=== PATIENT | female | born 1965 | race Caucasian/White ===

== ENCOUNTER 2021-12-08 18:10 | Emergency (ER) | payer BC, SELFPAY ==
[2021-12-08 18:20] VITALS: BP 124/86; PULSE 95; RESP 18; TEMP 36.6; O2SAT 97; BMI 29.1
[2021-12-08] MEDS: 0.9 % SODIUM CHLORIDE 1000 ml 1,000 ML IV ×2 (19:09→20:47)
[2021-12-08] MEDS: ONDANSETRON 2 MG/ML inj 4 MG IVP (19:10)
[2021-12-08 19:14] LABS: Lactate* 1.2 mmol/L (0.5-1.9)
[2021-12-08 19:17] LABS: Basophils Percent Auto 0.1 % (0.0-3.0); Eosinophils Percent Auto 1.3 % (0.0-7.0); Hematocrit 44.7 % (33.0-51.0); Hemoglobin* 15.2 gm/dL (12.0-16.0); Immature Granulocytes Abs Auto 0.03 K/uL (0.00-0.30); Lymphocytes Percent Auto 16.7 % (20-44); Mean Corpuscular HGB Conc 34 gm/dL (32-36); Mean Corpuscular Hemoglobin 32 pg (26-34); Mean Corpuscular Volume 93 fL (80-100); Monocytes Percent Auto 7.6 % (0.0-11.0); Neutrophils Percent Auto 74.1 % (42.0-72.0); Platelet Count* 369 K/uL (140-440); RDW Coefficient of Variation % 12.5 % (11.5-15.5); White Blood Count* 14.97 K/uL (4.50-11.00)
[2021-12-08 19:27] LABS: Slide Review Reflex No
--- NOTE | 2021-12-08 19:32 | ED_ITS ---
HPI - General Adult General Chief complaint: Nausea/Vomiting Stated complaint: POSSIBLE FOOD POISONING,NEG COVID TEST Time Seen by Provider: 12/08/21 18:18 History of Present Illness HPI narrative: Pt is a 56 year old woman with a history of RA who presents wtih 2 1/2 days of nausea and vomiting with limited nonbloody diarrhea. Prior to becoming ill, she had been eating [employer] at [employer]. No fever or chills. No chest pain, shortness of breath or abd pain. No rash. No blood in vomitus. No other sick contacts. Pt is on DMARD and Prednisone for RA Related Data Home Medications Medication Instructions Recorded Confirmed certolizumab pegol 400 mg/2 mL mg subcut 12/08/21 (200 mg/mL x2) subcutaneous syringe kit (Cimzia) prednisone 1 mg tablet mg 12/08/21 Allergies Allergy/AdvReac Type Severity Reaction Status Date / Time acetaminophen [From Vicodin] Allergy Verified 12/08/21 18:22 hydrocodone [From Vicodin] Allergy Verified 12/08/21 18:22 Review of Systems Status of ROS: Reports: 10 or more systems reviewed and unremarkable except as noted in History and below [facility] Medical History (Updated 12/08/21 @ 21:25 by Duy Sanchez MD) Rheumatoid arthritis Surgical History (Updated 12/08/21 @ 19:35 by Duy Sanchez MD) H/O hernia repair Social History Smoking Status: Never smoker Do you use any of these nicotine containing products: None Second hand tobacco smoke exposure: No How often do you have a drink containing alcohol: 2-3 times a week How many standard drinks containing alcohol do you have on a typical day: 1 or 2 How often do you have six or more drinks on one occasion: Never AUDIT-C Alcohol total score: 3 Non-prescribed substance use: denies use Exam Narrative: Exam Narrative: EXAM GENERAL: Patient appears comfortable and well. EYES: No scleral icterus. ENT: Tympanic membranes and oropharynx normal. THYROID: no thyroid nodules or thyromegaly. LYMPH: No supraclavicular or cervical lymphadenopathy. SKIN: Visible skin seen during exam normal or with benign process only. EXT: No dependent lower extremity pedal edema. HEART: Regular rate and rhythm with no murmurs, rubs, or gallops. LUNGS: Clear to auscultation bilaterally with no crackles or wheezes. ABD: Soft, non tender, non distended. PSYCH: Good eye contact, speech is not pressured. Const: Vital Signs, click to edit/add: Vital Signs - 24 hr 12/08/21 18:20 12/08/21 19:50 Temperature 97.9 F 97.2 F L Pulse Rate [Right Pulse Oximeter] 95 71 Respiratory Rate 18 18 Blood Pressure [Ri ght Upper Arm] 124/86 108/80 Pulse Oximetry 97 Oxygen Delivery Me thod Room Air Course Course Hospital Course: Pt had IV placed and started on Normal saline with IV Zofran. CBC, Lactate, Amylase, CMP ordered. Reevaluation(s) Reevaluation #1: Pt's labs reviewed with pt. Pt given 2 liters normal saline with 20 Meq Kcl orally. Pt feeling better and would like to go home. Time: 21:22 Vital Signs Vital signs: Initial Vital Signs Temperature 97.9 F 12/08/21 18:20 Temperature Source Temporal Artery Scan 12/08/21 18:20 Pulse Rate 95 12/08/21 18:20 Respiratory Rate 18 12/08/21 18:20 Blood Pressure 124/86 12/08/21 18:20 Blood Pressure Mean 98 12/08/21 18:20 Blood Pressure Position Sitting 12/08/21 18:20 Pulse Oximetry 97 12/08/21 18:20 Oxygen Delivery Method 12/08/21 18:20 Vital Signs Temperature 97.9 F 12/08/21 18:20 Pulse Rate 95 12/08/21 18:20 Respiratory Rate 18 12/08/21 18:20 Blood Pressure 124/86 12/08/21 18:20 Pulse Oximetry 97 12/08/21 18:20 Oxygen Delivery Method 12/08/21 18:20 Temperature 97.2 F L 12/08/21 19:50 Pulse Rate 71 12/08/21 19:50 Respiratory Rate 18 12/08/21 19:50 Blood Pressure 108/80 12/08/21 19:50 Pulse Oximetry 97 12/08/21 18:20 Oxygen Delivery Method 12/08/21 18:20 Medical Decision Making MDM Narrative Medical decision making narrative: Pt presents with nausea vomiting and diarrhea. Appeared dehydrated. Labs reassuring. Pt feeling better after NS 2 Liter and 20 of Kcl orally. Would like to go home. Differential Diagnosis Differential Diagnosis: Gastroenteritis. Cholecystitis, Appendicitis, Colitis. Lab Data Labs: Lab Results 12/08/21 12/08/21 12/08/21 Range/Units 18:58 18:58 18:58 WBC 14.97 H (4.50-11.00) K/uL RBC 4.80 (4.00-5.20) m/uL Hgb 15.2 (12.0-16.0) gm/dL Hct 44.7 (33.0-51.0) % MCV 93 (80-100) fL MCH 32 (26-34) pg MCHC 34 (32-36) gm/dL RDW Coeff of Neida 12.5 (11.5-15.5) % Plt Count 369 (140-440) K/uL Neut % (Auto) 74.1 H (42.0-72.0) % Lymph % (Auto) 16.7 L (20-44) % [place] % (Auto) 7.6 (0.0-11.0) % Eos % (Auto) 1.3 (0.0-7.0) % Baso % (Auto) 0.1 (0.0-3.0) % Neut # (Auto) 11.10 H (1.7-7.0) K/uL Lymph # (Auto) 2.50 (0.90-2.90) K/uL [place] # (Auto) 1.10 H (0.00-0.90) K/UL Eos # (Auto) 0.20 (0.00-0.50) K/uL Baso # (Auto) 0.00 (0.00-0.30) K/uL Abs Immat Gran (auto) 0.03 (0.00-0.30) K/uL Sodium 136 (135-149) mmol/L Potassium 3.4 L (3.6-5.1) mmol/L Chloride 101 (96-114) mmol/L Carbon Dioxide 23 (20-32) mmol/L BUN 21 (7-30) mg/dL Creatinine 0.7 (0.5-1.5) mg/dL Estimated Creat Clear 83.01 Estimated GFR 101 ml/min Glucose 118 H (60-115) mg/dL Lactate 1.2 (0.5-1.9) mmol/L Calcium 9.4 (8.4-10.6) mg/dL Total Bilirubin 0.5 (0.1-1.5) mg/dL AST 24 (12-35) U/L ALT 19 (4-35) U/L Alkaline Phosphatase 108 (40-150) U/L Total Protein 7.9 (6.0-8.3) g/dL Albumin 4.3 (3.3-5.0) g/dL Amylase 74 (18-89) U/L 12/08/21 Range/Units 20:40 WBC (4.50-11.00) K/uL RBC (4.00-5.20) m/uL Hgb (12.0-16.0) gm/dL Hct (33.0-51.0) % MCV (80-100) fL MCH (26-34) pg MCHC (32-36) gm/dL RDW Coeff of Neida (11.5-15.5) % Plt Count (140-440) K/uL Neut % (Auto) (42.0-72.0) % Lymph % (Auto) (20-44) % [place] % (Auto) (0.0-11.0) % Eos % (Auto) (0.0-7.0) % Baso % (Auto) (0.0-3.0) % Neut # (Auto) (1.7-7.0) K/uL Lymph # (Auto) (0.90-2.90) K/uL [place] # (Auto) (0.00-0.90) K/UL Eos # (Auto) (0.00-0.50) K/uL Baso # (Auto) (0.00-0.30) K/uL Abs Immat Gran (auto) (0.00-0.30) K/uL Sodium (135-149) mmol/L Potassium (3.6-5.1) mmol/L Chloride (96-114) mmol/L Carbon Dioxide (20-32) mmol/L BUN (7-30) mg/dL Creatinine (0.5-1.5) mg/dL Estimated Creat Clear Estimated GFR ml/min Glucose (60-115) mg/dL Lactate 1.1 (0.5-1.9) mmol/L Calcium (8.4-10.6) mg/dL Total Bilirubin (0.1-1.5) mg/dL AST (12-35) U/L ALT (4-35) U/L Alkaline Phosphatase (40-150) U/L Total Protein (6.0-8.3) g/dL Albumin (3.3-5.0) g/dL Amylase (18-89) U/L Discharge Plan Discharge Clinical Impression: Gastroenteritis Condition: Stable Instructions: Gastroenteritis (ED) Additional Instructions: Advance diet as tolerated Zofran as needed for nausea Follow up with PCP if symptoms persist Activity Level: Activity as Tolerated Discharge Diet: Regular Prescriptions: No Action prednisone 1 mg tablet Label Comments: TAKE 4 TABLETS (4MG) BY MOUTH IN THE MORNING AND 3 TABLETS (3MG) IN THE EVENING Cimzia 400 mg/2 mL (200 mg/mL x 2) syringe kit SUBCUT Follow Up/Referrals: Katiana Lawler MD [Primary Care Provider] - Stand Alone Forms: MyHealth Info Instructions
[2021-12-08 19:37] LABS: Albumin* 4.3 g/dL (3.3-5.0); Chloride* 101 mmol/L (96-114); Sodium* 136 mmol/L (135-149)
[2021-12-08 19:38] LABS: Potassium* 3.4 mmol/L (3.6-5.1)
[2021-12-08 19:40] LABS: Alanine Aminotransferase* 19 U/L (4-35); Alkaline Phosphatase* 108 U/L (40-150); Amylase* 74 U/L (18-89); Aspartate Amino Transferase* 24 U/L (12-35); Bilirubin Total* 0.5 mg/dL (0.1-1.5); Blood Urea Nitrogen* 21 mg/dL (7-30); Calcium* 9.4 mg/dL (8.4-10.6); Carbon Dioxide* 23 mmol/L (20-32); Creatinine* 0.7 mg/dL (0.5-1.5); Est. Creatinine Clearance* 83.01; Estimated Glomerular Filt Rate 101 ml/min; Glucose* 118 mg/dL (60-115); Total Protein* 7.9 g/dL (6.0-8.3)
[2021-12-08 19:50] VITALS: BP 108/80; PULSE 71; RESP 18; TEMP 36.2
[2021-12-08 20:28] LABS: Lactate* 1.1 mmol/L (0.5-1.9)
[2021-12-08] MEDS: POTASSIUM CHLORIDE 10 MEQ CAPSULE ER 20 MEQ PO (20:51)
== END 2021-12-08 22:14 | disposition home or self-care (01) ==
PROVIDERS: Emergency Provider Internal Medicine; PCP Family Medicine
DX: K52.9 Noninfective gastroenteritis and colitis, unspecified (principal)
CPT/HCPCS: 36415; 80053; 82150; 83605; 85025; 96361; 96374; 99283; 99284; A9270; J2405; J7030

== ENCOUNTER 2023-03-01 09:48 | Emergency (ER) | payer BC, SELFPAY ==
[2023-03-01] VITALS (46 sets, daily range): BP systolic 86–129; BP diastolic 55–83; PULSE 66–81; RESP 16–20; TEMP 36.5–36.6; O2SAT 89–99; BMI 29.1
[2023-03-01 11:12] LABS: Lactate* 0.8 mmol/L (0.5-1.9)
[2023-03-01 11:16] LABS: Basophils Percent Auto 0.2 % (0.0-3.0); Eosinophils Percent Auto 0.8 % (0.0-7.0); Hematocrit 41.2 % (33.0-51.0); Hemoglobin* 12.8 gm/dL (12.0-16.0); Immature Granulocytes Pct Auto 0.1 %; Lymphocytes Percent Auto 11.3 % (20-44); Mean Corpuscular HGB Conc 31 gm/dL (32-36); Mean Corpuscular Hemoglobin 30 pg (26-34); Mean Corpuscular Volume 96 fL (80-100); Monocytes Percent Auto 6.8 % (0.0-11.0); Neutrophils Percent Auto 80.8 % (42.0-72.0); Platelet Count* 213 K/uL (140-440); RDW Coefficient of Variation % 14.3 % (11.5-15.5); Red Blood Count 4.28 m/uL (4.00-5.20); White Blood Count* 11.25 K/uL (4.50-11.00)
[2023-03-01] MEDS: 0.9 % SODIUM CHLORIDE 1000 ml 1,000 ML IV (11:20)
--- NOTE | 2023-03-01 11:24 | ED_ITS ---
HPI - Abdominal Pain General Time Seen by Provider: 11:15 <Lois Luevano - Last Filed: 03/01/23 16:23> Date Seen: 03/01/23 <Lois Luevano - Last Filed: 03/01/23 16:23> Chief Complaint: Abdominal Pain <Lois Luevano - Last Filed: 03/01/23 16:23> Stated Complaint: Gallbladder issues <Lois Luevano - Last Filed: 03/01/23 16:23> Time Seen by Provider: 03/01/23 11:01 <Lois Luevano - Last Filed: 03/01/23 16:23> Source: patient <Lois Luevano - Last Filed: 03/01/23 16:23> Mode of arrival: ambulatory <Lois Luevano - Last Filed: 03/01/23 16:23> Limitations: no limitations <Lois Luevano - Last Filed: 03/01/23 16:23> History of Present Illness HPI narrative: Patient presents with RUQ abdominal pain beginning 5 days ago, which has since progressively worsened within the past 24-48 hours with associated nausea and fatigue. She describes her pain as waxing and waning and notes it is normally worse at night. Today she rates her pain as a 5/10, but states the pain starts in the epigastric region and radiates around to her right upper back when the pain is at its worst. She has mild relief laying on her side. Eating large meals seems to worsen the pain, so patient has had a decreased appetite due to this. She last ate this morning at 0830 and had a 1/2 piece of toast. Patient was seen and evaluated at 0430 yesterday morning at the ED in [facility] and diagnosed with gall stones. She was sent home with Augmentin, but has not been taking anything else for the pain. Patient was in [place] for her niece's concert and the providers discharged her home in hopes of completing surgery closer to home. History of a tummy tuck, but denies any other abdominal surgeries. Patient's last bowel movement was yesterday. She denies any fevers, chills, vomiting, bowel changes, urinary changes, or any other complaints at this time. <Lois Luevano - Last Filed: 03/01/23 16:23> Patient presents with RUQ abdominal pain beginning 5 days ago, which has since progressively worsened within the past 24-48 hours with associated nausea and fatigue. She describes her pain as waxing and waning and notes it is normally worse at night. Today she rates her pain as a 5/10, but states the pain starts in the epigastric region and radiates around to her right upper back when the pain is at its worst. She has mild relief laying on her side. Eating large meals seems to worsen the pain, so patient has had a decreased appetite due to this. She last ate this morning at 0830 and had a 1/2 piece of toast. Patient was seen and evaluated at 0430 yesterday morning at the ED in [facility] and diagnosed with cholecystitis. She was sent home with Augmentin, but has not been taking anything else for the pain. Patient was in [place] for her niece's concert and the providers discharged her home in hopes of completing surgery closer to home. History of a tummy tuck, but denies any other abdominal surgeries. Patient's last bowel movement was yesterday. She denies any fevers, chills, vomiting, bowel changes, urinary changes, or any other complaints at thi s time. <Mary Schumacher MD - Last Filed: 03/01/23 22:08> Related Data Home Medications: Home Medications Medication Instructions Recorded Confirmed prednisone 1 mg tablet mg 12/08/21 02/15/23 hydroxychloroquine 200 mg tablet 200 mg PO DAILY 02/15/23 03/01/23 infliximab 100 mg intravenous IV 02/15/23 02/15/23 solution (Remicade) neomycin 3.5 mg/g-polymyxin B ophthalmic (eye) 02/15/23 02/15/23 10,000 unit/g-dexameth 0.1 % eye oint Previous Rx's Medication Instructions Recorded gabapentin 300 mg capsule 300 mg PO QHS #14 caps 02/17/23 <Lois Luevano - Last Filed: 03/01/23 16:23> Allergies/Adverse Reactions: Allergies Allergy/AdvReac Type Severity Reaction Status Date / Time acetaminophen [From Vicodin] Allergy Verified 03/01/23 10:04 hydrocodone [From Vicodin] Allergy Verified 03/01/23 10:04 <Lois Luevano - Last Filed: 03/01/23 16:23> Review of Systems Const Reports: fatigue; Denies: fever, chills or night sweats <[facility] - Last Filed: 03/01/23 16:23> Eyes Denies: change in vision or blurry vision <[facility] - Last Filed: 03/01/23 16:23> ENMT Denies: throat pain, neck pain, throat swelling or difficulty swallowing <[facility] - Last Filed: 03/01/23 16:23> Cardio Denies: chest pain, palpitations, edema, lightheadedness or shortness of breath with exertion <Lois [facility] - Last Filed: 03/01/23 16:23> Resp Denies: shortness of breath <Lois [facility] - Last Filed: 03/01/23 16:23> GI Reports: abdominal pain (RUQ) and nausea; Denies: vomiting, heartburn, diarrhea, constipation, bloating, difficulty swallowing, change in bowel habits or painful bowel movements <[facility] Last Filed: 03/01/23 16:23> Denies: painful urination, urinary frequency, urinary incontinence or blood in urine <[facility] Last Filed: 03/01/23 16:23> Musculo Reports: back pain; Denies: neck pain <[facility] Last Filed: 03/01/23 16:23> Integ/Breast Denies: rash or itching <[facility] - Last Filed: 03/01/23 16:23> Neuro Denies: headache <[facility] - Last Filed: 03/01/23 16:23> Psych Denies: anxiety <[facility] Last Filed: 03/01/23 16:23> Endo Reports: fatigue <[facility] Last Filed: 03/01/23 16:23> Allergy/Immuno Denies: throat swelling <[facility] Last Filed: 03/01/23 16:23> PFSH PFSH Medical History: Medical History Rheumatoid arthritis ?M06.9 - Rheumatoid arthritis, unspecified (ICD-10) <[facility] - Last Filed: 03/01/23 16:23> Surgical History: Surgical History H/O hernia repair ?Z98.890 - Other specified postprocedural states (ICD-10) ?Z87.19 - Personal history of other diseases of the digestive system (ICD-10) <Lois Luevano - Last Filed: 03/01/23 16:23> Social History: Social History Smoking Status: Never smoker Do you use any of these nicotine containing products: None Second hand tobacco smoke exposure: No How often do you have a drink containing alcohol: 2-3 times a week How many standard drinks containing alcohol do you have on a typical day: 1 or 2 How often do you have six or more drinks on one occasion: Never AUDIT-C Alcohol total score: 3 Non-prescribed substance use: denies use <Lois Luevano - Last Filed: 03/01/23 16:23> Exam Const: Vital Signs, click to edit/add: Vital Signs - 24 hr 03/01/23 09:57 03/01/23 11:47 03/01/23 11:48 Temperature 97.7 F Pulse Rate 76 Pulse Rate [Left P ulse Oximeter] 81 78 Respiratory Rate 16 18 Blood Pressure 121/79 Blood Pressure [Ri ght Upper Arm] 129/83 121/79 Pulse Oximetry 99 93 91 Oxygen Delivery Me thod Room Air Room Air Oxygen Flow Rate 03/01/23 11:48 03/01/23 12:00 03/01/23 12:17 Temperature Pulse Rate 77 73 75 Pulse Rate [Left P ulse Oximeter] Respiratory Rate Blood Pressure Blood Pressure [Ri ght Upper Arm] Pulse Oximetry 92 92 91 Oxygen Delivery Me thod Oxygen Flow Rate 03/01/23 12:30 03/01/23 12:45 03/01/23 13:37 Temperature Pulse Rate 70 72 Pulse Rate [Left P ulse Oximeter] 79 Respiratory Rate 20 Blood Pressure Blood Pressure [Ri ght Upper Arm] 109/75 Pulse Oximetry 91 92 92 Oxygen Delivery Me thod Room Air Oxygen Flow Rate 03/01/23 15:45 03/01/23 16:00 03/01/23 16:01 Temperature Pulse Rate 80 75 73 Pulse Rate [Left P ulse Oximeter] Respiratory Rate Blood Pressure 104/68 Blood Pressure [Ri ght Upper Arm] Pulse Oximetry 91 93 94 Oxygen Delivery Me thod Oxygen Flow Rate 03/01/23 16:15 03/01/23 16:30 03/01/23 16:31 Temperature Pulse Rate 81 79 76 Pulse Rate [Left P ulse Oximeter] Respiratory Rate Blood Pressure 98/70 Blood Pressure [Ri ght Upper Arm] Pulse Oximetry 94 95 92 Oxygen Delivery Me thod Oxygen Flow Rate 03/01/23 16:45 03/01/23 17:00 03/01/23 17:02 Temperature Pulse Rate 77 78 75 Pulse Rate [Left P ulse Oximeter] Respiratory Rate Blood Pressure 93/69 Blood Pressure [Ri ght Upper Arm] Pulse Oximetry 92 92 95 Oxygen Delivery Me thod Oxygen Flow Rate 03/01/23 17:03 03/01/23 17:15 03/01/23 17:30 Temperature Pulse Rate 74 71 75 Pulse Rate [Left P ulse Oximeter] Respiratory Rate Blood Pressure Blood Pressure [Ri ght Upper Arm] Pulse Oximetry 94 96 93 Oxygen Delivery Me thod Oxygen Flow Rate 03/01/23 17:31 03/01/23 17:45 03/01/23 18:00 Temperature Pulse Rate 73 73 72 Pulse Rate [Left P ulse Oximeter] Respiratory Rate Blood Pressure 111/66 Blood Pressure [Ri ght Upper Arm] Pulse Oximetry 94 96 93 Oxygen Delivery Me thod Oxygen Flow Rate 03/01/23 18:01 03/01/23 18:02 03/01/23 18:15 Temperature Pulse Rate 72 71 73 Pulse Rate [Left P ulse Oximeter] Respiratory Rate Blood Pressure 105/68 Blood Pressure [Ri ght Upper Arm] Pulse Oximetry 94 95 94 Oxygen Delivery Me thod Oxygen Flow Rate 03/01/23 18:30 03/01/23 18:31 03/01/23 18:45 Temperature Pulse Rate 73 74 78 Pulse Rate [Left P ulse Oximeter] Respiratory Rate Blood Pressure 86/70 L Blood Pressure [Ri ght Upper Arm] Pulse Oximetry 94 96 93 Oxygen Delivery Me thod Oxygen Flow Rate 03/01/23 19:00 03/01/23 19:01 03/01/23 19:15 Temperature Pulse Rate 78 73 73 Pulse Rate [Left P ulse Oximeter] Respiratory Rate Blood Pressure 98/69 Blood Pressure [Ri ght Upper Arm] Pulse Oximetry 94 93 91 Oxygen Delivery Me thod Oxygen Flow Rate 03/01/23 19:30 03/01/23 19:31 03/01/23 20:00 Temperature Pulse Rate 72 70 69 Pulse Rate [Left P ulse Oximeter] Respiratory Rate Blood Pressure 100/68 Blood Pressure [Ri ght Upper Arm] Pulse Oximetry 91 91 89 Oxygen Delivery Me thod Room Air Nasal Cannula Oxygen Flow Rate 1 03/01/23 20:01 03/01/23 20:30 03/01/23 20:30 Temperature Pulse Rate 70 71 Pulse Rate [Left P ulse Oximeter] Respiratory Rate Blood Pressure 104/74 Blood Pressure [Ri ght Upper Arm] Pulse Oximetry 93 95 89 Oxygen Delivery Me thod Nasal Cannula Nasal Cannula Room Air Oxygen Flow Rate 1 1 03/01/23 20:31 03/01/23 21:00 03/01/23 21:02 Temperature Pulse Rate 69 68 66 Pulse Rate [Left P ulse Oximeter] Respiratory Rate Blood Pressure 91/68 94/63 Blood Pressure [Ri ght Upper Arm] Pulse Oximetry 96 94 95 Oxygen Delivery Me thod Nasal Cannula Nasal Cannula Nasal Cannula Oxygen Flow Rate 1 1 1 03/01/23 21:30 03/01/23 21:31 03/01/23 21:32 Temperature Pulse Rate 69 68 68 Pulse Rate [Left P ulse Oximeter] Respiratory Rate Blood Pressure 105/69 Blood Pressure [Ri ght Upper Arm] Pulse Oximetry 95 95 95 Oxygen Delivery Me thod Nasal Cannula Nasal Cannula Nasal Cannula Oxygen Flow Rate 1 1 0.5 03/01/23 21:45 Temperature 97.8 F Pulse Rate 72 Pulse Rate [Left P ulse Oximeter] Respiratory Rate Blood Pressure Blood Pressure [Ri ght Upper Arm] Pulse Oximetry 96 Oxygen Delivery Me thod Nasal Cannula Oxygen Flow Rate 0.5 <Lois Luevano - Wiliam Filed: 03/01/23 16:23> Vital Signs, click to edit/add: Vital Signs - 24 hr 03/01/23 09:57 03/01/23 11:47 03/01/23 11:48 Temperature 97.7 F Pulse Rate 76 Pulse Rate [Left P ulse Oximeter] 81 78 Respiratory Rate 16 18 Blood Pressure 121/79 Blood Pressure [Ri ght Upper Arm] 129/83 121/79 Pulse Oximetry 99 93 91 Oxygen Delivery Me thod Room Air Room Air Oxygen Flow Rate 03/01/23 11:48 03/01/23 12:00 12/04/23 12:17 Temperature Pulse Rate 77 73 75 Pulse Rate [Left P ulse Oximeter] Respiratory Rate Blood Pressure Blood Pressure [Ri ght Upper Arm] Pulse Oximetry 92 92 91 Oxygen Delivery Me thod Oxygen Flow Rate 03/01/23 12:30 03/01/23 12:45 03/01/23 13:37 Temperature Pulse Rate 70 72 Pulse Rate [Left P ulse Oximeter] 79 Respiratory Rate 20 Blood Pressure Blood Pressure [Ri ght Upper Arm] 109/75 Pulse Oximetry 91 92 92 Oxygen Delivery Me thod Room Air Oxygen Flow Rate 03/01/23 15:45 03/01/23 16:00 03/01/23 16:01 Temperature Pulse Rate 80 75 73 Pulse Rate [Left P ulse Oximeter] Respiratory Rate Blood Pressure 104/68 Blood Pressure [Ri ght Upper Arm] Pulse Oximetry 91 93 94 Oxygen Delivery Me thod Oxygen Flow Rate 03/01/23 16:15 03/01/23 16:30 03/01/23 16:31 Temperature Pulse Rate 81 79 76 Pulse Rate [Left P ulse Oximeter] Respiratory Rate Blood Pressure 98/70 Blood Pressure [Ri ght Upper Arm] Pulse Oximetry 94 95 92 Oxygen Delivery Me thod Oxygen Flow Rate 03/01/23 16:45 03/01/23 17:00 03/01/23 17:02 Temperature Pulse Rate 77 78 75 Pulse Rate [Left P ulse Oximeter] Respiratory Rate Blood Pressure 93/69 Blood Pressure [Ri ght Upper Arm] Pulse Oximetry 92 92 95 Oxygen Delivery Me thod Oxygen Flow Rate 03/01/23 17:03 03/01/23 17:15 03/01/23 17:30 Temperature Pulse Rate 74 71 75 Pulse Rate [Left P ulse Oximeter] Respiratory Rate Blood Pressure Blood Pressure [Ri ght Upper Arm] Pulse Oximetry 94 96 93 Oxygen Delivery Me thod Oxygen Flow Rate 03/01/23 17:31 03/01/23 17:45 03/01/23 18:00 Temperature Pulse Rate 73 73 72 Pulse Rate [Left P ulse Oximeter] Respiratory Rate Blood Pressure 111/66 Blood Pressure [Ri ght Upper Arm] Pulse Oximetry 94 96 93 Oxygen Delivery Me thod Oxygen Flow Rate 03/01/23 18:01 03/01/23 18:02 03/01/23 18:15 Temperature Pulse Rate 72 71 73 Pulse Rate [Left P ulse Oximeter] Respiratory Rate Blood Pressure 105/68 Blood Pressure [Ri ght Upper Arm] Pulse Oximetry 94 95 94 Oxygen Delivery Me thod Oxygen Flow Rate 03/01/23 18:30 03/01/23 18:31 03/01/23 18:45 Temperature Pulse Rate 73 74 78 Pulse Rate [Left P ulse Oximeter] Respiratory Rate Blood Pressure 86/70 L Blood Pressure [Ri ght Upper Arm] Pulse Oximetry 94 96 93 Oxygen Delivery Me thod Oxygen Flow Rate 03/01/23 19:00 03/01/23 19:01 03/01/23 19:15 Temperature Pulse Rate 78 73 73 Pulse Rate [Left P ulse Oximeter] Respiratory Rate Blood Pressure 98/69 Blood Pressure [Ri ght Upper Arm] Pulse Oximetry 94 93 91 Oxygen Delivery Me thod Oxygen Flow Rate 03/01/23 19:30 03/01/23 19:31 03/01/23 20:00 Temperature Pulse Rate 72 70 69 Pulse Rate [Left P ulse Oximeter] Respiratory Rate Blood Pressure 100/68 Blood Pressure [Ri ght Upper Arm] Pulse Oximetry 91 91 89 Oxygen Delivery Me thod Room Air Nasal Cannula Oxygen Flow Rate 1 03/01/23 20:01 03/01/23 20:30 03/01/23 20:30 Temperature Pulse Rate 70 71 Pulse Rate [Left P ulse Oximeter] Respiratory Rate Blood Pressure 104/74 Blood Pressure [Ri ght Upper Arm] Pulse Oximetry 93 95 89 Oxygen Delivery Me thod Nasal Cannula Nasal Cannula Room Air Oxygen Flow Rate 1 1 03/01/23 20:31 03/01/23 21:00 03/01/23 21:02 Temperature Pulse Rate 69 68 66 Pulse Rate [Left P ulse Oximeter] Respiratory Rate Blood Pressure 91/68 94/63 Blood Pressure [Ri ght Upper Arm] Pulse Oximetry 96 94 95 Oxygen Delivery Me thod Nasal Cannula Nasal Cannula Nasal Cannula Oxygen Flow Rate 1 1 1 03/01/23 21:30 03/01/23 21:31 03/01/23 21:32 Temperature Pulse Rate 69 68 68 Pulse Rate [Left P ulse Oximeter] Respiratory Rate Blood Pressure 105/69 Blood Pressure [Ri ght Upper Arm] Pulse Oximetry 95 95 95 Oxygen Delivery Me thod Nasal Cannula Nasal Cannula Nasal Cannula Oxygen Flow Rate 1 1 0.5 03/01/23 21:45 Temperature 97.8 F Pulse Rate 72 Pulse Rate [Left P ulse Oximeter] Respiratory Rate Blood Pressure Blood Pressure [Ri ght Upper Arm] Pulse Oximetry 96 Oxygen Delivery Me thod Nasal Cannula Oxygen Flow Rate 0.5 <Mary Schumacher MD - Last Filed: 03/01/23 22:08> Documenting provider has reviewed patient's vital signs: yes <[facility] Filed: 03/01/23 16:23> Common normals: no apparent distress, average body habitus, oriented x3, no limitations, healthy appearing, alert and well nourished <[facility] Last Filed: 03/01/23 16:23> HENMT: Common normals: normocephalic, head/scalp atraumatic, hearing grossly normal bilaterally, external ears normal, external nose normal, nasal mucous membranes and turbinates normal, moist oral mucous membranes and oropharynx normal <[facility] Filed: 03/01/23 16:23> Head and scalp: normocephalic and atraumatic <[facility] Filed: 03/01/23 16:23> Nose: external nose normal and nasal mucous membranes and turbinates normal <[facility] Filed: 03/01/23 16:23> External ear: external ears normal <[facility] Filed: 03/01/23 16:23> Eye: Common normals: PERRL, EOMs intact bilaterally, conjunctivae normal and no scleral icterus <[facility] Filed: 03/01/23 16:23> Conjunctiva: conjunctiva(e) normal <[facility] Filed: 03/01/23 16:23> Pupil: PERRL <[facility] Filed: 03/01/23 16:23> Neck & C-Spine: Common normals: full ROM, no lymphadenopathy, supple, no JVD and no carotid bruits <[facility] Filed: 03/01/23 16:23> Chest: Common normals: inspection of chest normal and palpation of chest normal <[facility] Last Filed: 03/01/23 16:23> Resp: Common normals: normal respiratory effort, no retractions, no use of accessory muscles, clear to auscultation bilaterally and percussion normal <[facility] Last Filed: 03/01/23 16:23> Auscultation: clear to auscultation bilaterally <[facility] Last Filed: 03/01/23 16:23> Percussion: percussion normal <[facility] Last Filed: 03/01/23 16:23> Cardio: Common normals: no JVD, regular rate, regular rhythm, S1 normal heart sound, S2 normal heart sound, no gallops, no clicks, no murmurs, no rub and peripheral pulses 2+ throughout <[facility] Last Filed: 03/01/23 16:23> Rate: regular rate <[facility] Last Filed: 03/01/23 16:23> Rhythm: regular rhythm <[facility] Filed: 03/01/23 16:23> Heart sounds: S1 normal and S2 normal <[facility] Filed: 03/01/23 16:23> Peripheral pulses: pulses 2+ throughout <[facility] Filed: 03/01/23 16:23> GI: Common normals: soft to palpation and no hepatosplenomegaly <[facility] Last Filed: 03/01/23 16:23> Inspection: normal to inspection; no abdominal distension <[facility] Last Filed: 03/01/23 16:23> Auscultation: normoactive bowel sounds <[facility] Last Filed: 03/01/23 16:23> Palpation: soft, tender Details: epigastric, RUQ and Coelho's sign and no hepatosplenomegaly; no guarding and not rigid <[facility] Last Filed: 03/01/23 16:23> Percussion: normal to percussion <[facility] Last Filed: 03/01/23 16:23> : Common normals: no CVA tenderness <[facility] Last Filed: 03/01/23 16:23> Bladder/kidney exam: no CVA tenderness <[facility] Last Filed: 03/01/23 16:23> Back & Pelvis: Common normals: no CVA tenderness <Lois Luevano - Last Filed: 03/01/23 16:23> Extremity: Common normals: normal to inspection, full ROM, normal capillary refill and no pedal edema <Lois [facility] - Last Filed: 03/01/23 16:23> Neuro: Common normals: oriented x3 <Lois Luevano - Last Filed: 03/01/23 16:23> Sensorium/orientation: alert <Lois Luevano - Last Filed: 03/01/23 16:23> Psych: Common normals: mental status grossly normal, thought process normal, cooperative, affect normal and speech normal <Lois Luevano - Last Filed: 03/01/23 16:23> Speech: normal speech <Lois Luevano - Last Filed: 03/01/23 16:23> Thought process: normal thought process <Lois [facility] - Last Filed: 03/01/23 16:23> Skin: Common normals: no rashes or lesions noted <Lois [facility] - Last Filed: 03/01/23 16:23> General skin exam: no rashes or lesions noted <Lois [facility]ano - Last Filed: 03/01/23 16:23> Course Course ED Course: I have personally evaluated patient and reviewed note, ordered and reviewed labs and imaging. Agree with assessment and plan. Manuel Schumacher MD <Mary Schumacher MD - Last Filed: 03/01/23 22:08> Reevaluation(s) Time of Reevaluation #1: 11:20 <Loisprasanth Luevano - Last Filed: 03/01/23 16:23> Reevaluation #1: Patient seen and evaluated by URI Rehman. <[facility]ois [facility] - Last Filed: 03/01/23 16:23> Time of Reevaluation #2: 11:35 <Lois Luevano - Last Filed: 03/01/23 16:23> Reevaluation #2: Patient seen and evaluated by Dr. Schumacher. Updated patient and family on the plan. <Lois Luevano - Last Filed: 03/01/23 16:23> Vital Signs Vital signs: Initial Vital Signs Temperature 97.7 F 03/01/23 09:57 Temperature Source Temporal Artery Scan 03/01/23 09:57 Pulse Rate 81 03/01/23 09:57 Respiratory Rate 16 03/01/23 09:57 Blood Pressure 129/83 03/01/23 09:57 Blood Pressure Mean 98 03/01/23 09:57 Blood Pressure Position Sitting 03/01/23 09:57 Pulse Oximetry 99 03/01/23 09:57 Oxygen Delivery Method Room Air 03/01/23 09:57 Vital Signs Temperature 97.7 F 03/01/23 09:57 Pulse Rate 81 03/01/23 09:57 Respiratory Rate 16 03/01/23 09:57 Blood Pressure 129/83 03/01/23 09:57 Pulse Oximetry 99 03/01/23 09:57 Oxygen Delivery Method Room Air 03/01/23 09:57 Temperature 97.8 F 03/01/23 21:45 Pulse Rate 72 03/01/23 21:45 Respiratory Rate 20 03/01/23 13:37 Blood Pressure 105/69 03/01/23 21:31 Pulse Oximetry 96 03/01/23 21:45 Oxygen Delivery Method Nasal Cannula 03/01/23 21:45 Oxygen Flow Rate 0.5 03/01/23 21:45 <Lois Luevano - Last Filed: 03/01/23 16:23> Initial Vital Signs Temperature 97.7 F 03/01/23 09:57 Temperature Source Temporal Artery Scan 03/01/23 09:57 Pulse Rate 81 03/01/23 09:57 Respiratory Rate 16 03/01/23 09:57 Blood Pressure 129/83 03/01/23 09:57 Blood Pressure Mean 98 03/01/23 09:57 Blood Pressure Position Sitting 03/01/23 09:57 Pulse Oximetry 99 03/01/23 09:57 Oxygen Delivery Method Room Air 03/01/23 09:57 Vital Signs Temperature 97.7 F 03/01/23 09:57 Pulse Rate 81 03/01/23 09:57 Respiratory Rate 16 03/01/23 09:57 Blood Pressure 129/83 03/01/23 09:57 Pulse Oximetry 99 03/01/23 09:57 Oxygen Delivery Method Room Air 03/01/23 09:57 Temperature 97.8 F 03/01/23 21:45 Pulse Rate 72 03/01/23 21:45 Respiratory Rate 20 03/01/23 13:37 Blood Pressure 105/69 03/01/23 21:31 Pulse Oximetry 96 03/01/23 21:45 Oxygen Delivery Method Nasal Cannula 03/01/23 21:45 Oxygen Flow Rate 0.5 03/01/23 21:45 <Mary Schumacher MD - Last Filed: 03/01/23 22:08> Medications Administered Medications: Generic Name Dose Route Start Last Admin Trade Name Freq PRN Reason Stop Dose Admin Lactated Ringer's 1,000 mls @ 125 mls/hr 03/01/23 14:10 03/01/23 16:06 Lactated Ringers 1000 Ml IV 125 mls/hr .Q8H SYEDA Administration Discontinued Medications Generic Name Dose Route Start Last Admin Trade Name Freq PRN Reason Stop Dose Admin Sodium Chloride 1,000 mls @ 1,000 mls/hr 03/01/23 11:45 03/01/23 14:45 0.9 % Sodium Chloride 1000 Ml IV 03/01/23 12:44 Infused .Q1H SYEDA Infusion Piperacillin Sod/Tazobactam 100 mls @ 100 mls/hr 03/01/23 14:10 03/01/23 15:55 Sod 3.375 gm/ Sodium Chloride IVPB 03/01/23 14:11 Infused ONCE ONE Infusion Morphine Sulfate 4 mg 03/01/23 11:32 03/01/23 11:40 Morphine 4 Mg/Ml Inj IVP 03/01/23 11:33 4 mg ONCE ONE Administration Morphine Sulfate 4 mg 03/01/23 17:28 03/01/23 17:46 Morphine 4 Mg/Ml Inj IVP 03/01/23 17:29 4 mg ONCE ONE Administration Ondansetron HCl 4 mg 03/01/23 11:32 03/01/23 11:40 Ondansetron 2 Mg/Ml Inj IVP 03/01/23 11:33 4 mg ONCE ONE Administration Ondansetron HCl 4 mg 03/01/23 17:56 03/01/23 17:45 Ondansetron 2 Mg/Ml Inj IVP 03/01/23 17:57 4 mg ONCE ONE Administration <Lois Luevano - Last Filed: 03/01/23 16:23> Generic Name Dose Route Start Last Admin Trade Name Freq PRN Reason Stop Dose Admin Lactated Ringer's 1,000 mls @ 125 mls/hr 03/01/23 14:10 03/01/23 16:06 Lactated Ringers 1000 Ml IV 125 mls/hr .Q8H SYEDA Administration Discontinued Medications Generic Name Dose Route Start Last Admin Trade Name Baljinder PRN Reason Stop Dose Admin Sodium Chloride 1,000 mls @ 1,000 mls/hr 03/01/23 11:45 03/01/23 14:45 0.9 % Sodium Chloride 1000 Ml IV 03/01/23 12:44 Infused .Q1H SYEDA Infusion Piperacillin Sod/Tazobactam 100 mls @ 100 mls/hr 03/01/23 14:10 03/01/23 15:55 Sod 3.375 gm/ Sodium Chloride IVPB 03/01/23 14:11 Infused ONCE ONE Infusion Morphine Sulfate 4 mg 03/01/23 11:32 03/01/23 11:40 Morphine 4 Mg/Ml Inj IVP 03/01/23 11:33 4 mg ONCE ONE Administration Morphine Sulfate 4 mg 03/01/23 17:28 03/01/23 17:46 Morphine 4 Mg/Ml Inj IVP 03/01/23 17:29 4 mg ONCE ONE Administration Ondansetron HCl 4 mg 03/01/23 11:32 03/01/23 11:40 Ondansetron 2 Mg/Ml Inj IVP 03/01/23 11:33 4 mg ONCE ONE Administration Ondansetron HCl 4 mg 03/01/23 17:56 03/01/23 17:45 Ondansetron 2 Mg/Ml Inj IVP 03/01/23 17:57 4 mg ONCE ONE Administration <Mary Schumacher MD - Last Filed: 03/01/23 22:08> MDM - Abdominal Pain MDM Narrative Medical decision making narrative: Patient is a 58-year-old female who presents with ongoing right upper quadrant abdominal pain radiating to her back beginning approximately 5 days ago, which has since increased in intensity and now has associated nausea and fatigue. Her pain is waxing and waning in nature, worse at night, and seems to be triggered by fatty meals. Patient was seen and evaluated yesterday morning at in the ED in [place] and was diagnosed with probable cholecystitis. It was determined that the patient was stable enough to travel home and be seen here in [place] for possible surgery. Patient last ate this morning at 8:30 a.m. Her last bowel movement was last night. On exam, patient is afebrile, well nourished, ill-appearing with pallor, but in no acute distress. Abdomen is soft, non-distended, with mild RUQ tenderness appreciated on exam with a positive Coelho's sign. Physical exam is otherwise unremarkable. Differential diagnosis includes, but is not limited to, cholelithiasis, choledocholithiasis, cholecystitis, pancreatitis, gastroenteritis, GERD, peptic ulcer disease, hepatitis, or small bowel obstruction. Workup will include CBC, BMP, LFTs, lactate, lipase, and US. IV placed and patient started on 1 L of lactated ringers, 4 mg Zofran, and 4 mg morphine for nausea and pain control. Discussed the plan with the patient and her , they understand and are in agreement. Reviewed patient's labs and CT results from her ER visit yesterday which showed showed leukocytosis, but LFTs were normal. Today, WBC are still elevated and LFTs are now remarkably elevated including a total bilirubin of 3.4, direct bilirubin of 1.7, Alkaline Phosphate at 184, and AST:ALT of 221:244. Ordered subsequent MRCP due to these labs to rule out choledocholithiasis. Lipase is WNL ruling out superimposed pancreatitis. Lactate unremarkable. After talking with Dr. Greenberg and based on the MRCP results it is likely the patient now has choledocholithiasis with her cholecystitis and cannot be treated here at [place]. Discussed transferring the patient to another hospital within the [facility] area to do an ERCP, patient and family understand and are in agreement with the plan. Patient given one IV dose of Zosyn 3.375 gm. On repeat vitals, patients O2 sat on room air is 88-91% while sleeping, but WNL when awake and talking. She states her levels normally run low, but she has not been diagnosed with KAREN. Not a concern at this time. Patient is feeling better after the above care. Patient has been accepted for transfer at [facility] with a 4 hour wait. <Lois Luevano - Last Filed: 03/01/23 16:23> Patient is a 58-year-old female who presents with ongoing right upper quadrant abdominal pain radiating to her back beginning approximately 5 days ago, which has since increased in intensity and now has associated nausea and fatigue. Her pain is waxing and waning in nature, worse at night, and seems to be triggered by fatty meals. Patient was seen and evaluated yesterday morning at in the ED in [place] and was diagnosed with probable cholecystitis. It was determined that the patient was stable enough to travel home and be seen here in [place] for possible surgery. Patient last ate this morning at 8:30 a.m. Her last bowel movement was last night. On exam, patient is afebrile, well nourished, ill-appearing with pallor, but in no acute distress. Abdomen is soft, non-distended, with mild RUQ tenderness appreciated on exam with a positive Coelho's sign. Physical exam is otherwise unremarkable. Differential diagnosis includes, but is not limited to, cholelithiasis, choledocholithiasis, cholecystitis, pancreatitis, gastroenteritis, GERD, peptic ulcer disease, hepatitis, or small bowel obstruction. Workup will include CBC, BMP, LFTs, lactate, lipase, and US. IV placed and patient started on 1 L of lactated ringers, 4 mg Zofran, and 4 mg morphine for nausea and pain control. Discussed the plan with the patient and her , they understand and are in agreement. Reviewed patient's labs and CT results from her ER visit yesterday which showed showed leukocytosis, but LFTs were normal. Today, WBC are still elevated and LFTs are now remarkably elevated including a total bilirubin of 3.4, direct bilirubin of 1.7, Alkaline Phosphate at 184, and AST:ALT of 221:244. Ordered subsequent MRCP due to these labs to rule out choledocholithiasis. Lipase is WNL ruling out superimposed pancreatitis. Lactate unremarkable. After talking with Dr. Burgos and based on the MRCP results it is likely the patient now has choledocholithiasis with her cholecystitis and cannot be treated here at [place]. Discussed transferring the patient to another hospital within the [facility] area to do an ERCP, patient and family understand and are in agreement with the plan. Patient given one IV dose of Zosyn 3.375 gm. On repeat vitals, patients O2 sat on room air is 88-91% while sleeping, but WNL when awake and talking. She states her levels normally run low, but she has not been diagnosed with KAREN. Not a concern at this time. Patient is feeling better after the above care. Patient has been accepted for transfer at [facility] with a 4 hour wait. <Mary Schumacher MD - Last Filed: 03/01/23 22:08> Medical Records Attestation: I reviewed the patient's medical records. <Lois Luevano - Last Filed: 03/01/23 16:23> Lab Data Attestation: I reviewed the patient's lab results. <Lois Luevano - Last Filed: 03/01/23 16:23> Labs: Lab Results 03/01/23 Range/Units 11:05 WBC 11.25 H (4.50-11.00) K/uL RBC 4.28 (4.00-5.20) m/uL Hgb 12.8 (12.0-16.0) gm/dL Hct 41.2 (33.0-51.0) % MCV 96 (80-100) fL MCH 30 (26-34) pg MCHC 31 L (32-36) gm/dL RDW Coeff of Neida 14.3 (11.5-15.5) % Plt Count 213 (140-440) K/uL Neut % (Auto) 80.8 H (42.0-72.0) % Lymph % (Auto) 11.3 L (20-44) % [place]illingham % (Auto) 6.8 (0.0-11.0) % Eos % (Auto) 0.8 (0.0-7.0) % Baso % (Auto) 0.2 (0.0-3.0) % Neut # (Auto) 9.10 H (1.7-7.0) K/uL Lymph # (Auto) 1.30 (0.90-2.90) K/uL Dillingham # (Auto) 0.80 (0.00-0.90) K/UL Eos # (Auto) 0.10 (0.00-0.50) K/uL Baso # (Auto) 0.00 (0.00-0.30) K/uL Abs Immat Gran (auto) 0.00 (0.00-0.30) K/uL Imm/Tot Granulo (auto) 0.1 % Sodium 137 (135-149) mmol/L Potassium 3.5 L (3.6-5.1) mmol/L Chloride 108 (96-114) mmol/L Carbon Dioxide 23 (20-32) mmol/L Anion Gap 6 L (7-15) mEq/L BUN 11 (7-30) mg/dL Creatinine 0.8 (0.5-1.5) mg/dL Estimated Creat Clear 70.88 Estimated GFR 85 ml/min Glucose 102 (60-115) mg/dL Lactate 0.8 (0.5-1.9) mmol/L Calcium 8.7 (8.4-10.6) mg/dL Total Bilirubin 3.4 H (0.1-1.5) mg/dL Direct Bilirubin 1.7 H (0.0-0.5) mg/dL AST 221 H (12-35) U/L ALT 244 H (4-35) U/L Alkaline Phosphatase 184 H (40-150) U/L Total Protein 6.9 (6.0-8.3) g/dL Albumin 3.8 (3.3-5.0) g/dL Lipase 67 (23-300) U/L <Lois Luevano - Wiliam Filed: 03/01/23 16:23> Lab Results 03/01/23 Range/Units 11:05 WBC 11.25 H (4.50-11.00) K/uL RBC 4.28 (4.00-5.20) m/uL Hgb 12.8 (12.0-16.0) gm/dL Hct 41.2 (33.0-51.0) % MCV 96 (80-100) fL MCH 30 (26-34) pg MCHC 31 L (32-36) gm/dL RDW Coeff of Neida 14.3 (11.5-15.5) % Plt Count 213 (140-440) K/uL Neut % (Auto) 80.8 H (42.0-72.0) % Lymph % (Auto) 11.3 L (20-44) % [place]illingham % (Auto) 6.8 (0.0-11.0) % Eos % (Auto) 0.8 (0.0-7.0) % Baso % (Auto) 0.2 (0.0-3.0) % Neut # (Auto) 9.10 H (1.7-7.0) K/uL Lymph # (Auto) 1.30 (0.90-2.90) K/uL Dillingham # (Auto) 0.80 (0.00-0.90) K/UL Eos # (Auto) 0.10 (0.00-0.50) K/uL Baso # (Auto) 0.00 (0.00-0.30) K/uL Abs Immat Gran (auto) 0.00 (0.00-0.30) K/uL Imm/Tot Granulo (auto) 0.1 % Sodium 137 (135-149) mmol/L Potassium 3.5 L (3.6-5.1) mmol/L Chloride 108 (96-114) mmol/L Carbon Dioxide 23 (20-32) mmol/L Anion Gap 6 L (7-15) mEq/L BUN 11 (7-30) mg/dL Creatinine 0.8 (0.5-1.5) mg/dL Estimated Creat Clear 70.88 Estimated GFR 85 ml/min Glucose 102 (60-115) mg/dL Lactate 0.8 (0.5-1.9) mmol/L Calcium 8.7 (8.4-10.6) mg/dL Total Bilirubin 3.4 H (0.1-1.5) mg/dL Direct Bilirubin 1.7 H (0.0-0.5) mg/dL AST 221 H (12-35) U/L ALT 244 H (4-35) U/L Alkaline Phosphatase 184 H (40-150) U/L Total Protein 6.9 (6.0-8.3) g/dL Albumin 3.8 (3.3-5.0) g/dL Lipase 67 (23-300) U/L <Mary Schumacher MD - Last Filed: 03/01/23 22:08> Discharge Plan Discharge Clinical Impression: Choledocholithiasis with acute cholecystitis <Lois Luevano - Last Filed: 03/01/23 16:23> Patient Disposition: Xfer Other <Lois Luevano - Last Filed: 03/01/23 16:23> Discharge Location: [facility] <Lois Luevano - Last Filed: 03/01/23 16:23> Condition: Stable <Loisprasanth Luevano - Last Filed: 03/01/23 16:23> Prescriptions: No Action hydroxychloroquine 200 mg tablet 200 mg PO DAILY neomycin-polymyxin B-dexameth 3.5 mg/g-10,000 unit/g-0.1 % ointment ophthalmic (eye) Patient Comments: [NO ORIGINAL SIG] infliximab [Remicade] 100 mg recon soln IV prednisone 1 mg tablet Patient Comments: TAKE 4 TABLETS (4MG) BY MOUTH IN THE MORNING AND 3 TABLETS (3MG) IN THE EVENING gabapentin 300 mg capsule 300 mg PO QHS Qty: 14 0RF <Lois Luevano - Last Filed: 03/01/23 16:23> Stand Alone Forms: MyHealth Info Instructions <Lois Luevano - Wiliam Filed: 03/01/23 16:23>
[2023-03-01 11:27] LABS: Slide Review Reflex No
[2023-03-01 11:29] LABS: Albumin* 3.8 g/dL (3.3-5.0); Chloride* 108 mmol/L (96-114); Sodium* 137 mmol/L (135-149)
[2023-03-01 11:30] LABS: Potassium* 3.5 mmol/L (3.6-5.1)
[2023-03-01 11:32] LABS: Alanine Aminotransferase* 244 U/L (4-35); Alkaline Phosphatase* 184 U/L (40-150); Anion Gap 6 mEq/L (7-15); Aspartate Amino Transferase* 221 U/L (12-35); Bilirubin Total* 3.4 mg/dL (0.1-1.5); Blood Urea Nitrogen* 11 mg/dL (7-30); Carbon Dioxide* 23 mmol/L (20-32); Creatinine* 0.8 mg/dL (0.5-1.5); Est. Creatinine Clearance* 70.88; Estimated Glomerular Filt Rate 85 ml/min; Glucose* 102 mg/dL (60-115); Lipase* 67 U/L (23-300); Total Protein* 6.9 g/dL (6.0-8.3)
--- NOTE | 2023-03-01 11:32 | CRLHL7_ITS ---
For Patients: As a result of the Century Cures Act, medical imaging exams and procedure reports are released immediately into your electronic medical record. You may view this report before your referring provider. If you have questions, please contact your health care provider. INDICATION: Right upper quadrant abdomen pain TECHNIQUE: Ultrasound abdomen limited. Sonographic images of the right upper quadrant were obtained using llanos-scale and color Doppler images. COMPARISON: None FINDINGS: Liver: Normal in size and echotexture. No masses. No intrahepatic biliary dilatation. Gallbladder: Cholelithiasis with mild gallbladder wall thickening and questionable pericholecystic fluid. Common bile duct: 6 mm. Pancreas: Obscured by bowel gas. Right kidney: Normal in size. Normal echotexture and cortex. No masses, stones, or hydronephrosis. Vasculature: Proximal abdominal aorta and IVC are normal. IMPRESSION: Cholelithiasis with gallbladder wall thickening and possible trace pericholecystic fluid, question cholecystitis. Common duct upper normal diameter. Dictated by Lane Martinez MD @ 03/01/2023 1:33:01 PM (Electronically Signed)
[2023-03-01 11:33] LABS: Calcium* 8.7 mg/dL (8.4-10.6)
[2023-03-01] MEDS: ONDANSETRON 2 MG/ML inj 4 MG IVP ×2 (11:40→17:45)
[2023-03-01] MEDS: MORPHINE 4 MG/ML INJ IVP ×2 (11:40→17:46)
[2023-03-01 11:42] LABS: Bilirubin Direct* 1.7 mg/dL (0.0-0.5)
--- NOTE | 2023-03-01 12:22 | CRLHL7_ITS ---
For Patients: As a result of the Century Cures Act, medical imaging exams and procedure reports are released immediately into your electronic medical record. You may view this report before your referring provider. If you have questions, please contact your health care provider. INDICATION: CHOLEDOCOLITHIASIS HISTORY: Cholelithiasis. Evaluate for common bile duct stone. COMPARISON: Ultrasound of the abdomen, 03/01/2023. TECHNIQUE: MRI of the abdomen without intravenous gadolinium, MRCP. Three plane localizer, 3 plane SSFP, axial T1 weighted in and out of phase, axial T2 weighted haste, and high-resolution, heavily T2 weighted 2D/3D MRCP images. No intravenous gadolinium administered. FINDINGS: There is a filling defect in the common bile duct, which is suspicious for choledocholithiasis. The common bile duct measures 10 mm. The filling defect is seen on series 2, image 21, and on series 3, image 21. GI consultation/consideration for ERCP is suggested. The filling defect measures 6 mm. Cholelithiasis is also present. There are adjacent inflammatory changes which may indicate cholecystitis. Liver morphology is non cirrhotic. No adrenal mass. No hydronephrosis or perinephric fluid collection. Spleen size is normal. There is no pancreatic mass or glandular atrophy. There are T2 hyperintense liver lesions, which are nonspecific without the benefit of intravenous gadolinium. For example, in the anterior segment of the right hepatic lobe, 13 mm lesion on series 9, image 17. No pleural or pericardial effusion. Normal marrow signal intensity. No mural thickening or perienteric edema involving the small bowel/colon. IMPRESSION: 1. Filling defect on multiple sequences within the common bile duct is consistent with choledocholithiasis. Common bile duct measures up to 10 mm. Filling defect is also well seen on the coronal MRCP source images. See series 14, image 49. 2. GI consultation and consideration for ERCP is suggested. 3. Normal caliber main pancreatic duct. No double duct sign. No evidence for pancreatic divisum. 4. Cholelithiasis with associated inflammatory changes. Consider cholecystitis. 5. Findings discussed with general surgery, [facility], 03/01/23, 1538 hours. Dictated by Yasmani Rocha MD @ 03/01/2023 3:44:12 PM Dictated by: Yasmani Rocha MD @ 03/01/2023 15:44:22 (Electronically Signed)
--- NOTE | 2023-03-01 12:49 | ED.NURSE ---
patient is going to MRI via now.
[2023-03-01] MEDS: PIPERACILLIN/TAZOBACTAM 3.375 GM in 0.9 % SODIUM CHLORIDE Mini-bag 100 ML IVPB (14:40)
[2023-03-01] MEDS: LACTATED RINGERS 1000 ML 1,000 ML 125 ML IV (16:06)
--- NOTE | 2023-03-01 19:15 | ED.NURSE ---
pt report given to oncfrancesco RN
--- NOTE | 2023-03-01 20:30 | ED.NURSE ---
Pt resting in room and satting at 89% on room air. Pt states she has undiagnosed sleep apnea. 1 LPM oxygen placed via NC for comfort.
--- NOTE | 2023-03-01 21:34 | ED.NURSE ---
Pt accepted to [facility] by Dr. Khan. Handoff report given to PRATIK Ruano ([phone]). Pt to be transferred via EMS to [facility], Observation Unit, 4th floor, Room 4907, Bed 1. Dispatch called. ETA after 2200.
--- NOTE | 2023-03-01 22:55 | ED.NURSE ---
Pt's imaging CD from [place], [place] left in pt vini. 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 Pt's states all imaging and tests done while pt was in [place] ED were redone here at [facility], so to dispose of CD. CD disposed of.
== END 2023-03-01 22:10 | disposition other institution (70) ==
PROVIDERS: Emergency Provider Emergency Medicine; PCP Family Medicine
DX: K80.00 Calculus of gallbladder with acute cholecystitis without obstruction (principal)
CPT/HCPCS: 36415; 74181; 76705; 80048; 80053; 80076; 82248; 83605; 83690; 85025; 96365; 96375; 99284; 99285; J2270; J2405; J2543; J7030; J7120

== ENCOUNTER 2023-03-01 22:05 | Outpatient (CLI) | payer BC, SELFPAY | END 2023-03-01 22:06 | disposition home or self-care (01) | LOC: AMB 03-03 10:37 | PROVIDERS: PCP Family Medicine; Visit Provider Family Medicine | DX: R10.9 Unspecified abdominal pain (principal) | CPT/HCPCS: A0425; A0426 ==

== ENCOUNTER 2023-06-26 11:15 | Emergency (ER) | payer BC, SELFPAY ==
[2023-06-26] VITALS (15 sets, daily range): BP systolic 101–107; BP diastolic 59–74; PULSE 72–111; RESP 18–24; TEMP 37.1; O2SAT 91–100; BMI 28.2
--- NOTE | 2023-06-26 11:40 | CT_ITS ---
Patient: ACE MORALES Facility:?[facility] Patient ID:?[id number] Site Patient ID:?[id number]. Site :?[id number] Study:?CT-Abdomen/Pelvis W/ 95CC [id number]/30/2024 1:49:05 PM Ordering Physician:Raj Rajput Final Report: INDICATION: Shortness of breath. CT CHEST, ABDOMEN, AND PELVIS WITH CONTRAST TECHNIQUE: Multidetector CT imaging was performed through the chest, abdomen, and pelvis following intravenous contrast administration using 95 mL Isovue 370. Coronal and sagittal reconstructions were generated. COMPARISON: None. FINDINGS: Lungs and airways: Multiple areas of patchy ground-glass opacity and consolidation scattered throughout both lungs, most likely infectious or inflammatory in etiology. Central airways are patent. Pleura and pleural spaces: No pleural effusions or pneumothorax. Heart and mediastinum: Normal heart size. No significant pericardial effusion. Several scattered upper normal sized mediastinal lymph nodes, nonspecific. No pathologically enlarged mediastinal lymph nodes identified. Vascular structures: No filling defects in the pulmonary arterial tree to suggest pulmonary emboli. Normal caliber aorta. Minimal atherosclerotic calcifications of the abdominal aorta. Chest wall and axillae: No mass or axillary lymphadenopathy. Liver and spleen: Small hypodense lesions in the liver on images 17, 31, and 34 of series 2 show subtle nodular peripheral enhancement and are favored to represent hemangiomas. Unremarkable spleen. Gallbladder and bile ducts: Status post cholecystectomy. Slight fullness of the extrahepatic bile duct likely reflects post cholecystectomy reservoir effect. Pancreas, adrenals, and retroperitoneum: No pancreatic or adrenal mass. No pathologically enlarged lymph nodes identified in the abdomen or pelvis. Kidneys, ureters, and urinary bladder: No renal masses or hydronephrosis. Slight prominence of the urinary bladder wall most likely reflects lack of distention although cystitis is not entirely excluded. Gastrointestinal tract and peritoneum: Small hiatal hernia. Normal caliber bowel without wall thickening or obstruction. Normal appendix. No free air, abscess, or significant free fluid. Abdominal wall: Very small fat-containing umbilical hernia. Benign-appearing subcutaneous calcification over the low abdomen to the right of midline. Reproductive organs: No pelvic masses. Bones: Minor spinal degenerative changes. IMPRESSION: 1. Bilateral patchy ground-glass infiltrates and areas of lung consolidation, most likely infectious or inflammatory in etiology. COVID-19 pneumonia is possible, along with other etiologies. 2. No pulmonary emboli identified. 3. Questionable mild wall thickening of the urinary bladder, most likely due to nondistention. Correlation with urinalysis is recommended, however, to exclude cystitis. 4. Nonacute additional findings as detailed above. BATSHEVA KINSEY MD [employer] Dictated by Chris Kinsey MD @ 06/26/2023 2:33:52 PM Please note that all CT scans at this facility use dose modulation, iterative reconstruction, and/or weight-based dosing when appropriate to reduce radiation dose to as low as reasonably achievable. Dictated by: Chris Kinsey MD @ 06/26/2023 14:36:06 Signed by:?Chris Kinsey MD @06/26/2023 2:36:06 PM (Electronic Signature)
--- NOTE | 2023-06-26 11:46 | ED.GENADULT ---
HPI - General Adult General Date Seen: 06/26/23 Chief complaint: Nausea/Vomiting Stated complaint: Sent by -nausea, temp, wants more fluids etc. Time Seen by Provider: 06/26/23 11:17 Source: patient Mode of arrival: ambulatory Limitations: no limitations History of Present Illness HPI narrative: patient is a 58-year-old female with a history of rheumatoid arthritis presenting to the emergency department for fevers, weakness. She states the symptoms started 3 days ago. She has been intermittent during chills and fevers. Had a temperature of 101? yesterday. Has been taking Tylenol which will relieve her headache improved chills but she was still feeling very weak. States she can only walk to the bathroom and back before she becomes exhausted. Went to urgent care yesterday was given fluids and Zofran. She states that made her feel better but she again feels week ago today. She went to urgent care again and they told her to come to the emergency department. Has not been eating or drinking much she states due to not having much of an appetite. She had an episode of diarrhea this morning also. COVID and flu tests yesterday were negative. She states she has very mild abdominal discomfort and some relatively mild shortness of breath. She states she feels lightheaded even just laying in bed right now. Does note she went to make a week and half ago. Is on Remicade for the rheumatoid arthritis. She does note that while her voice sounds week it has been like that since she was intubated for cholecystectomy several months ago and is not any different. Denies having a sore throat. She states she thinks she has some kind of virus. Related Data Home Medications Medication Instructions Recorded Confirmed hydroxychloroquine 200 mg tablet 200 mg PO DAILY 02/15/23 06/25/23 infliximab 100 mg intravenous IV 02/15/23 06/25/23 solution (Remicade) neomycin 3.5 mg/g-polymyxin B ophthalmic (eye) 02/15/23 06/25/23 10,000 unit/g-dexameth 0.1 % eye oint omeprazole 20 mg capsule,delayed 20 mg PO DAILY 06/25/23 06/25/23 release prednisone 5 mg tablet 5 mg PO DAILY 06/25/23 06/25/23 Previous Rx's Medication Instructions Recorded gabapentin 300 mg capsule 300 mg PO QHS #14 caps 02/17/23 ondansetron 4 mg disintegrating 4 mg PO Q8H PRN nausea and 06/25/23 tablet vomiting #14 tabs levofloxacin 750 mg tablet 750 mg PO Q24H #7 tabs 06/26/23 Allergies Allergy/AdvReac Type Severity Reaction Status Date / Time Iodinated Contrast Media Allergy Intermediate Verified 06/26/23 11:27 acetaminophen [From Vicodin] Allergy Verified 06/25/23 14:09 hydrocodone [From Vicodin] Allergy Verified 06/25/23 14:09 Review of Systems Status of ROS: Reports: 10 or more systems reviewed and unremarkable except as noted in History and below [facility] Medical History Rheumatoid arthritis ?M06.9 - Rheumatoid arthritis, unspecified (ICD-10) Surgical History H/O hernia repair ?Z98.890 - Other specified postprocedural states (ICD-10) ?Z87.19 - Personal history of other diseases of the digestive system (ICD-10) Social History Smoking Status: Never smoker Do you use any of these nicotine containing products: None Second hand tobacco smoke exposure: No How often do you have a drink containing alcohol: 2-3 times a week How many standard drinks containing alcohol do you have on a typical day: 1 or 2 How often do you have six or more drinks on one occasion: Never AUDIT-C Alcohol total score: 3 Non-prescribed substance use: denies use Exam Narrative: Exam Narrative: Const: Well-nourished, Well-developed, in mild distress, diaphoretic Eyes: PERRL, no conjunctival injection, and symmetrical lids HENT: Atraumatic external nose and ears. Moist mucous membranes. Neck: Symmetric, trachea midline, No thyromegaly. CVS: RRR, No murmurs or gallops. Peripheral pulses 2+ and equal in all extremities RESP: Unlabored respiratory effort. Clear to auscultation bilaterally. GI: Nontender/Nondistended, No rebound or guarding. MSK:Extremities w/o deformity, Normal Active ROM Skin: Warm, Dry. No rashes or lesions. Neuro: Normal Muscle tone, No focal neurological deficits. Psych: Awake, Alert, & Oriented x3. Appropriate mood and affect. Const: Vital Signs, click to edit/add: Vital Signs - 24 hr 06/26/23 11:21 06/26/23 12:53 06/26/23 13:00 Temperature 98.7 F Pulse Rate 81 77 Pulse Rate [Pulse Oximeter] 111 H Respiratory Rate 18 Blood Pressure Blood Pressure [Ri ght Upper Arm] 106/74 Pulse Oximetry 94 92 91 Oxygen Delivery Me thod Room Air 06/26/23 13:01 06/26/23 13:19 06/26/23 13:30 Temperature Pulse Rate 78 73 73 Pulse Rate [Pulse Oximeter] Respiratory Rate 24 Blood Pressure 103/72 Blood Pressure [Ri ght Upper Arm] Pulse Oximetry 91 96 93 Oxygen Delivery Me thod Room Air 06/26/23 13:31 06/26/23 13:51 06/26/23 14:00 Temperature Pulse Rate 72 74 Pulse Rate [Pulse Oximeter] Respiratory Rate 24 Blood Pressure 101/59 L Blood Pressure [Ri ght Upper Arm] Pulse Oximetry 93 100 92 Oxygen Delivery Me thod Room Air 06/26/23 14:01 06/26/23 14:15 06/26/23 14:30 Temperature Pulse Rate 73 73 73 Pulse Rate [Pulse Oximeter] Respiratory Rate 24 Blood Pressure 107/72 Blood Pressure [Ri ght Upper Arm] Pulse Oximetry 92 92 93 Oxygen Delivery Me thod Room Air 06/26/23 14:31 06/26/23 14:45 06/26/23 15:00 Temperature Pulse Rate 72 74 75 Pulse Rate [Pulse Oximeter] Respiratory Rate 22 Blood Pressure 104/70 Blood Pressure [Ri ght Upper Arm] Pulse Oximetry 93 95 93 Oxygen Delivery Me thod Room Air Course Vital Signs Vital signs: Initial Vital Signs Temperature 98.7 F 06/26/23 11:21 Temperature Source Oral 06/26/23 11:21 Pulse Rate 111 H 06/26/23 11:21 Respiratory Rate 18 06/26/23 11:21 Blood Pressure 106/74 06/26/23 11:21 Blood Pressure Mean 84 06/26/23 11:21 Blood Pressure Position Sitting 06/26/23 11:21 Pulse Oximetry 94 06/26/23 11:21 Oxygen Delivery Method Room Air 06/26/23 11:21 Vital Signs Temperature 98.7 F 06/26/23 11:21 Pulse Rate 111 H 06/26/23 11:21 Respiratory Rate 18 06/26/23 11:21 Blood Pressure 106/74 06/26/23 11:21 Pulse Oximetry 94 06/26/23 11:21 Oxygen Delivery Method Room Air 06/26/23 11:21 Temperature 98.7 F 06/26/23 11:21 Pulse Rate 75 06/26/23 15:00 Respiratory Rate 22 06/26/23 14:31 Blood Pressure 104/70 06/26/23 14:31 Pulse Oximetry 93 06/26/23 15:00 Oxygen Delivery Method Room Air 06/26/23 14:31 Medications Administered Medications: Discontinued Medications Generic Name Dose Route Start Last Admin Trade Name Freq PRN Reason Stop Dose Admin Diphenhydramine HCl 50 mg 06/26/23 12:05 06/26/23 12:28 Diphenhydramine 50 Mg/Ml Inj IVP 06/26/23 12:06 50 mg ONCE ONE Administration Hydrocortisone Sodium Succinate 200 mg 06/26/23 12:05 06/26/23 12:30 Hydrocortisone Sod Succinate 50 Mg/Ml Inj IVP 06/26/23 12:06 200 mg ONCE ONE Administration Lactated Ringer's 1,000 mls @ 1,000 mls/hr 06/26/23 11:40 06/26/23 13:15 Lactated Ringers 1000 Ml IV 06/26/23 12:39 Infused .Q1H ONE Infusion Medical Decision Making MDM Narrative Medical decision making narrative: patient is a 58 year female presenting for some vague concerns. I am concerned for some type of infection at this point due to the diaphoresis and shortness of breath. She has been having some abdominal symptoms to. Since she is immunocompromised with the Remicade I will do a broad workup. I will go straight to a chest CT and abdominal CT. Since she is mildly short of breath I will also and a D-dimer while we wait for to be premedicated for her IV contrast allergy. Also her CBC, CMP, urinalysis. Troponin and EKG was ordered for signs of ACS. She is tachycardic and diaphoretic. While she does not currently meet SIRS criteria I will prophylactically order lactate and blood cultures. She is not currently nauseated or in any pain she states. Will give her a L fluids for likely dehydration. Initial CBC shows a white count 16.15. Cannot say for certain if this is a stress reaction versus infectious etiology. CMP shows no concerning findings. She has mildly elevated ALT and alk-phos but they are improved from previously. Urinalysis shows possible signs of a UTI. Her D-dimer is positive so I will order CTA. CTA shows signs of pneumonia and possible cystitis. This is consistent with her symptoms and her urinalysis. When I went to speak to a she also now states she has been coughing at home. Her lactate was normal and she is not appear septic. Her heart rate has improved from 110 to 70. She has been able to walk around the department without issue. I will treat her with Levaquin for both of her infections as she is on Remicade and prednisone so I am treating her as and unhealthy immunocompromised patient. She is agreeable to this plan. Blood cultures were ordered and are pending. Will call her with results of they are positive. EKG and troponin showed no concerning findings. Do not think is necessary to repeat troponin as she is not having chest pain and symptoms have been going on for several days. She feels comfortable with discharge. I did give her strict return precautions. Lab Data Labs: Lab Results 06/26/23 06/26/23 06/26/23 Range/Units 11:41 11:51 13:10 WBC (4.50-11.00) K/uL RBC (4.00-5.20) m/uL Hgb (12.0-16.0) gm/dL Hct (33.0-51.0) % MCV (80-100) fL MCH (26-34) pg MCHC (32-36) gm/dL RDW Coeff of Neida (11.5-15.5) % Plt Count (140-440) K/uL Neut % (Auto) (42.0-72.0) % Lymph % (Auto) (20-44) % [place] % (Auto) (0.0-11.0) % Eos % (Auto) (0.0-7.0) % Baso % (Auto) (0.0-3.0) % Neut # (Auto) (1.7-7.0) K/uL Lymph # (Auto) (0.90-2.90) K/uL [place] # (Auto) (0.00-0.90) K/UL Eos # (Auto) (0.00-0.50) K/uL Baso # (Auto) (0.00-0.30) K/uL Abs Immat Gran (auto) (0.00-0.30) K/uL Imm/Tot Granulo (auto) % D-Dimer Quant (PE/DVT) (0.00-0.50) ug/ml Sodium (135-149) mmol/L Potassium (3.6-5.1) mmol/L Chloride (96-114) mmol/L Carbon Dioxide (20-32) mmol/L Anion Gap (7-15) mEq/L BUN (7-30) mg/dL Creatinine (0.5-1.5) mg/dL Estimated Creat Clear Estimated GFR ml/min Glucose (60-115) mg/dL Lactate (0.5-1.9) mmol/L Calcium (8.4-10.6) mg/dL Total Bilirubin (0.1-1.5) mg/dL AST (12-35) U/L ALT (4-35) U/L Alkaline Phosphatase (40-150) U/L Total Protein (6.0-8.3) g/dL Albumin (3.3-5.0) g/dL Urine Color Yellow (Yellow) Urine Appearance Slightly Cloudy A (Clear) Urine pH 6.0 (5.0-8.5) Ur Specific [place] <= 1.005 (1.000-1.030) Urine Protein Negative (Negative) Urine Glucose (UA) Negative (Negative) Urine Ketones 2+ A (Negative) Urine Blood Trace-lysed A (Negative) Urine Nitrite Negative (Negative) Urine Bilirubin Negative (Negative) Urine Urobilinogen 0.2 (0.2-1.0) Ur Leukocyte Esterase 1+ A (Negative) Urine RBC 2-5 A (0-2) Urine WBC 5-10 A (0-5) Ur Squamous Epith Cells Few (None-Few) Urine Bacteria Few A (None) Lab Acknowledgement Test Added POC Troponin I 0.02 (0.01-0.04) ng/ml 06/26/23 Range/Units Unknown WBC 16.15 H (4.50-11.00) K/uL RBC 4.08 (4.00-5.20) m/uL Hgb 12.6 (12.0-16.0) gm/dL Hct 38.8 (33.0-51.0) % MCV 95 (80-100) fL MCH 31 (26-34) pg MCHC 33 (32-36) gm/dL RDW Coeff of Neida 14.1 (11.5-15.5) % Plt Count 273 (140-440) K/uL Neut % (Auto) 89.4 H (42.0-72.0) % Lymph % (Auto) 4.7 L (20-44) % [place] % (Auto) 5.4 (0.0-11.0) % Eos % (Auto) 0.1 (0.0-7.0) % Baso % (Auto) 0.1 (0.0-3.0) % Neut # (Auto) 14.40 H (1.7-7.0) K/uL Lymph # (Auto) 0.80 L (0.90-2.90) K/uL [place] # (Auto) 0.90 (0.00-0.90) K/UL Eos # (Auto) 0.00 (0.00-0.50) K/uL Baso # (Auto) 0.00 (0.00-0.30) K/uL Abs Immat Gran (auto) 0.00 (0.00-0.30) K/uL Imm/Tot Granulo (auto) 0.3 % D-Dimer Quant (PE/DVT) 1.21 H (0.00-0.50) ug/ml Sodium 134 L (135-149) mmol/L Potassium 3.4 L (3.6-5.1) mmol/L Chloride 102 (96-114) mmol/L Carbon Dioxide 20 (20-32) mmol/L Anion Gap 12 (7-15) mEq/L BUN 27 (7-30) mg/dL Creatinine 0.6 (0.5-1.5) mg/dL Estimated Creat Clear 94.51 Estimated GFR 103 ml/min Glucose 114 (60-115) mg/dL Lactate 1.3 (0.5-1.9) mmol/L Calcium 9.3 (8.4-10.6) mg/dL Total Bilirubin 0.9 (0.1-1.5) mg/dL AST 32 (12-35) U/L ALT 44 H (4-35) U/L Alkaline Phosphatase 179 H (40-150) U/L Total Protein 7.4 (6.0-8.3) g/dL Albumin 3.6 (3.3-5.0) g/dL Urine Color (Yellow) Urine Appearance (Clear) Urine pH (5.0-8.5) Ur Specific [place] (1.000-1.030) Urine Protein (Negative) Urine Glucose (UA) (Negative) Urine Ketones (Negative) Urine Blood (Negative) Urine Nitrite (Negative) Urine Bilirubin (Negative) Urine Urobilinogen (0.2-1.0) Ur Leukocyte Esterase (Negative) Urine RBC (0-2) Urine WBC (0-5) Ur Squamous Epith Cells (None-Few) Urine Bacteria (None) Lab Acknowledgement POC Troponin I (0.01-0.04) ng/ml Imaging Data CTA chest and CT with IV contrast abdomen and pelvis: Attestation: I have reviewed the pertinent imaging results. Radiologist's impression: 1. Bilateral patchy ground-glass infiltrates and areas of lung consolidation, most likely infectious or inflammatory in etiology. COVID-19 pneumonia is possible, along with other etiologies. 2. No pulmonary emboli identified. 3. Questionable mild wall thickening of the urinary bladder, most likely due to nondistention. Correlation with urinalysis is recommended, however, to exclude cystitis. 4. Nonacute additional findings as detailed above. BATSHEVA KINSEY MD [employer] Dictated by Chris Kinsey MD @ 06/26/2023 2:33:52 PM Please note that all CT scans at this facility use dose modulation, iterative reconstruction, and/or weight-based dosing when appropriate to reduce radiation dose to as low as reasonably achievable. Dictated by: Chris Kinsey MD @ 06/26/2023 14:36:06 ECG Data Attestation: I personally reviewed and interpreted this ECG as follows: Prior ECG tracings: not available for review Interpretation: Normal sinus rhythm with and a heart rate of 80 beats per minute, normal intervals, normal axis, no ST or T-wave abnormalities. T-wave inverted in V3 but this is normal and females. Did not have previous EKGs to compare rest of the leads to. Discharge Plan Discharge Clinical Impression: UTI (urinary tract infection) Qualifiers: Urinary tract infection type: acute cystitis Hematuria presence: without hematuria Qualified Code(s): N30.00 - Acute cystitis without hematuria Pneumonia Qualifiers: Pneumonia type: due to unspecified organism Laterality: bilateral Lung location: lower lobe of lung Qualified Code(s): J18.9 - Pneumonia, unspecified organism Patient Disposition: Home, Self-Care Condition: Improved Instructions: Urinary Tract Infection in Women (DC), Pneumonia (ED) Additional Instructions: Take the antibiotic as directed. If over the next couple days you feel like your symptoms are worsening return to the emergency department for re-evaluation. Blood cultures are pending at this time and if they do come back positive you will get a phone call the next couple days. I do think he should follow up with the primary care provider sometime in the upcoming week even if you are showing improvements concerning you are on the Remicade and prednisone. Prescriptions: New levofloxacin 750 mg tablet 750 mg PO Q24H Qty: 7 0RF No Action prednisone 5 mg tablet 5 mg PO DAILY omeprazole 20 mg capsule,delayed release(DR/EC) 20 mg PO DAILY ondansetron 4 mg tablet,disintegrating 4 mg PO Q8H PRN (Reason: nausea and vomiting) Qty: 14 0RF hydroxychloroquine 200 mg tablet 200 mg PO DAILY neomycin-polymyxin B-dexameth 3.5 mg/g-10,000 unit/g-0.1 % ointment ophthalmic (eye) Patient Comments: [NO ORIGINAL SIG] infliximab [Remicade] 100 mg recon soln IV gabapentin 300 mg capsule 300 mg PO QHS Qty: 14 0RF Follow Up/Referrals: Katiana Lawler MD [Primary Care Provider] - Stand Alone Forms: [employer] Info Instructions
[2023-06-26] MEDS: LACTATED RINGERS 1000 ML 1,000 ML IV (12:14)
[2023-06-26 12:16] LABS: Basophils Percent Auto 0.1 % (0.0-3.0); Eosinophils Percent Auto 0.1 % (0.0-7.0); Hematocrit 38.8 % (33.0-51.0); Hemoglobin* 12.6 gm/dL (12.0-16.0); Immature Granulocytes Pct Auto 0.3 %; Lymphocytes Percent Auto 4.7 % (20-44); Mean Corpuscular HGB Conc 33 gm/dL (32-36); Mean Corpuscular Hemoglobin 31 pg (26-34); Mean Corpuscular Volume 95 fL (80-100); Monocytes Percent Auto 5.4 % (0.0-11.0); Neutrophils Percent Auto 89.4 % (42.0-72.0); Platelet Count* 273 K/uL (140-440); RDW Coefficient of Variation % 14.1 % (11.5-15.5); Red Blood Count 4.08 m/uL (4.00-5.20); White Blood Count* 16.15 K/uL (4.50-11.00)
[2023-06-26 12:18] LABS: Lactate Sepsis w/Reflex* 1.3 mmol/L (0.5-1.9)
[2023-06-26 12:20] LABS: Slide Review Reflex No
[2023-06-26] MEDS: diphenhydrAMINE 50 MG/ML inj IVP (12:28)
[2023-06-26] MEDS: HYDROCORTISONE SOD SUCCINATE 50 MG/ML inj 200 MG IVP (12:30)
[2023-06-26 12:34] LABS: Albumin* 3.6 g/dL (3.3-5.0); Chloride* 102 mmol/L (96-114)
[2023-06-26 12:35] LABS: D Dimer Quantitative* 1.21 ug/ml (0.00-0.50); Potassium* 3.4 mmol/L (3.6-5.1); Sodium* 134 mmol/L (135-149)
[2023-06-26 12:37] LABS: Anion Gap 12 mEq/L (7-15); Aspartate Amino Transferase* 32 U/L (12-35); Bilirubin Total* 0.9 mg/dL (0.1-1.5); Carbon Dioxide* 20 mmol/L (20-32); Creatinine* 0.6 mg/dL (0.5-1.5); Est. Creatinine Clearance* 94.51; Estimated Glomerular Filt Rate 103 ml/min; Total Protein* 7.4 g/dL (6.0-8.3)
[2023-06-26 12:38] LABS: Alanine Aminotransferase* 44 U/L (4-35); Alkaline Phosphatase* 179 U/L (40-150); Blood Urea Nitrogen* 27 mg/dL (7-30); Calcium* 9.3 mg/dL (8.4-10.6); Glucose* 114 mg/dL (60-115)
--- NOTE | 2023-06-26 12:44 | CT_ITS ---
Patient: ACE MORALES Facility:?[facility] Patient ID:?[id number] Site Patient ID:?[id number]. Site :?[id number] Study:?CT-Chest W/ 95CC ISOVUE-370 PE PROTOCOL-06/26/2023 1:48:42 PM Ordering Physician:Raj Rajput Final Report: INDICATION: Shortness of breath. CT CHEST, ABDOMEN, AND PELVIS WITH CONTRAST TECHNIQUE: Multidetector CT imaging was performed through the chest, abdomen, and pelvis following intravenous contrast administration using 95 mL Isovue 370. Coronal and sagittal reconstructions were generated. COMPARISON: None. FINDINGS: Lungs and airways: Multiple areas of patchy ground-glass opacity and consolidation scattered throughout both lungs, most likely infectious or inflammatory in etiology. Central airways are patent. Pleura and pleural spaces: No pleural effusions or pneumothorax. Heart and mediastinum: Normal heart size. No significant pericardial effusion. Several scattered upper normal sized mediastinal lymph nodes, nonspecific. No pathologically enlarged mediastinal lymph nodes identified. Vascular structures: No filling defects in the pulmonary arterial tree to suggest pulmonary emboli. Normal caliber aorta. Minimal atherosclerotic calcifications of the abdominal aorta. Chest wall and axillae: No mass or axillary lymphadenopathy. Liver and spleen: Small hypodense lesions in the liver on images 17, 31, and 34 of series 2 show subtle nodular peripheral enhancement and are favored to represent hemangiomas. Unremarkable spleen. Gallbladder and bile ducts: Status post cholecystectomy. Slight fullness of the extrahepatic bile duct likely reflects post cholecystectomy reservoir effect. Pancreas, adrenals, and retroperitoneum: No pancreatic or adrenal mass. No pathologically enlarged lymph nodes identified in the abdomen or pelvis. Kidneys, ureters, and urinary bladder: No renal masses or hydronephrosis. Slight prominence of the urinary bladder wall most likely reflects lack of distention although cystitis is not entirely excluded. Gastrointestinal tract and peritoneum: Small hiatal hernia. Normal caliber bowel without wall thickening or obstruction. Normal appendix. No free air, abscess, or significant free fluid. Abdominal wall: Very small fat-containing umbilical hernia. Benign-appearing subcutaneous calcification over the low abdomen to the right of midline. Reproductive organs: No pelvic masses. Bones: Minor spinal degenerative changes. IMPRESSION: 1. Bilateral patchy ground-glass infiltrates and areas of lung consolidation, most likely infectious or inflammatory in etiology. COVID-19 pneumonia is possible, along with other etiologies. 2. No pulmonary emboli identified. 3. Questionable mild wall thickening of the urinary bladder, most likely due to nondistention. Correlation with urinalysis is recommended, however, to exclude cystitis. 4. Nonacute additional findings as detailed above. BATSHEVA KINSEY MD [employer] Dictated by Chris Kinsey MD @ 06/26/2023 2:33:52 PM Please note that all CT scans at this facility use dose modulation, iterative reconstruction, and/or weight-based dosing when appropriate to reduce radiation dose to as low as reasonably achievable. Dictated by: Chris Kinsey MD @ 06/26/2023 14:35:18 Signed by:?Chris Kinsey MD @06/26/2023 2:35:18 PM (Electronic Signature)
[2023-06-26 12:58] LABS: Troponin, Point-of-Care* 0.02 ng/ml (0.01-0.04)
[2023-06-26 13:19] LABS: Appearance Urine Slightly Cloudy (Clear); Bilirubin Urine Negative (Negative); Blood Urine Trace-lysed (Negative); Color Urine Yellow (Yellow); Glucose Urine Negative (Negative); Ketones Urine 2+ (Negative); Leukocyte Esterase Urine 1+ (Negative); Nitrite Urine Negative (Negative); Protein Urine Negative (Negative); Specific Gravity Urine <= 1.005 (1.000-1.030); Urobilinogen Urine 0.2 (0.2-1.0)
[2023-06-26 13:33] LABS: Bacteria Urine Few; Squamous Epithelial Cell Urine Few (None-Few)
--- NOTE | 2023-06-27 19:58 | ED.NURSE ---
Hugh Castaneda called. Message left about pt picking up prescription of Keflex, 250 mg QID x 5 days. called pt and informed them of the new script sent to [facility].
--- NOTE | 2023-06-28 12:57 | ED.NURSE ---
Talked to [facility] pharmacy to confirm change in antibiotic Keflex 250mg orally QID and stop the Levaquin due to resistant to organism that grew out.
== END 2023-06-26 15:15 | disposition home or self-care (01) ==
PROVIDERS: Emergency Provider Student in an Organized Health Care Education/Training Program; PCP Family Medicine
DX: J18.9 Pneumonia, unspecified organism (principal); N39.0 Urinary tract infection, site not specified
CPT/HCPCS: 36415; 71275; 74177; 80053; 81001; 83605; 84484; 85025; 85379; 87040; 87086; 87186; 93005; 96361; 96374; 96375; 99283; 99284; 99285; J1200; J1720; J7120; Q9967

== ENCOUNTER 2024-01-19 13:53 | Outpatient (CLI) | payer BC, SELFPAY ==
--- NOTE | 2024-01-19 14:00 | CRLHL7_ITS ---
For Patients: As a result of the Century Cures Act, medical imaging exams and procedure reports are released immediately into your electronic medical record. You may view this report before your referring provider. If you have questions, please contact your health care provider. DXA BONE MINERAL DENSITY STUDY Reason for exam: Menopause. Current height (in): 65. Weight (lb): 180. Menopause age: 51. Ethnicity: White. 1. Have you had a previous hip or vertebral fracture? No. 2. Have you had any fractures during your adult life which did not result from significant trauma (e.g., auto accident)? No. 3. Did either of your parents have a hip fracture? No. 4. Do you smoke? No. 5. Have you ever taken Glucocorticoids? No. 6. Do you have rheumatoid arthritis? Yes. 7. Do you have secondary osteoporosis? No. 8. Do you drink 3 or more alcoholic drinks per day? No. 9. Are you being treated for osteoporosis? No. 10. Have you ever taken any of the following medications: Actonel, Evista, Fosamax, Miacalcin, Reclast, Boniva, Forteo, HRT (i.e., estrogen/hormone therapy), Protelos, Prolia, Vitamin D, Calcium, other ??? please specify. ANSWER: Yes, vitamin D and calcium. 11. Do you have any of the following medical conditions: Anorexia or bulimia, asthma or emphysema, end stage renal disease, hyperparathyroidism, any seizure disorders, cancer, inflammatory bowel diseases, hysterectomy, other ??? please specify. ANSWER: No. 12. What was your maximum height (inches)? 67. 13. Do you perform weight bearing exercise regularly? No. 14. Do you regularly consume dairy products? Yes. 15. Do you drink caffeinated beverages? Yes. 16. At what age did your period start? 13. 17. Are you premenopausal? No. 18. How many full-term pregnancies have you had? 2. 19. Have you ever missed your period for more than 6 months in a row (not including or menopause)? No. TECHNIQUE: Bone mineral density study was performed using the [employer]. FINDINGS: The results of the study expressed as bone mineral density (BMD) are as follows: Lumbar spine L1 to L3: BMD: 0.868 g/cm2. T-score: -1.4. Z-score: 0.0 Neck Left: BMD: 0.592 g/cm2. T-score: -2.3. Z-score: -1.0 Right: BMD: 0.560 g/cm2. T-score: -2.6. Z-score: -1.3 Total Left: BMD: 0.743 g/cm2. T-score: -1.6. Z-score: -0.7 Right: BMD: 0.731 g/cm2. T-score: -1.7. Z-score: -0.8 IMPRESSION: Osteoporosis. *Comparison exams done prior to 08/2019 were performed on different unit, [employer]. COMPARISON: Compared with scan of05/22/2020, the bone mineral density has decreased by 0.9 percent at the spine and increased by 0.7 percent at the hip. Mau Coleman M.D. Diagnostic Radiologist [email or web address] GABRIELA/perry amador/Dictated by: Mau Coleman MD @ 01/20/2024 12:20:00 PM (Electronically Signed)
== END 2024-01-19 13:54 | disposition home or self-care (01) ==
LOC: RAD 13:54
PROVIDERS: PCP Family Medicine; Visit Provider Family Medicine
DX: Z13.820 Encounter for screening for osteoporosis (principal); M81.0 Age-related osteoporosis without current pathological fracture; Z78.0 Asymptomatic menopausal state
CPT/HCPCS: 77080

== ENCOUNTER 2024-09-22 11:28 | Outpatient (CLI) | payer BC, SELFPAY ==
--- NOTE | 2024-09-22 13:24 | P.ANES_ITS ---
Anesthesia Charges Start Date/Time Anesthesia Start Date: 09/22/24 Anesthesia Start Time: 12:50 Stop Date/Time Anesthesia Stop Date: 09/22/24 Anesthesia Stop Time: 13:23 Coding CPT Codes CPT Codes: ANES LWR INTST SCR COLSC - 65067 ([id number]) P3 - PATIENT W/SEVERE SYS DISEASE, QK - UROLOGY PHYSICIAN 2-4 CNCRNT ANES PROC, QX - MEDICAL TERRITORY MANAGER SVC W/ MD MED DIRECTION
--- NOTE | 2024-09-22 13:24 | W.ANESCHARGE ---
Anesthesia Charges Start Date/Time Anesthesia Start Date: 09/22/24 Anesthesia Start Time: 12:50 Stop Date/Time Anesthesia Stop Date: 09/22/24 Anesthesia Stop Time: 13:23 Coding CPT Codes CPT Codes: ANES LWR INTST SCR COLSC - 33132 ([id number]) P3 - PATIENT W/SEVERE SYS DISEASE, QK - ASSISTANT PROFESSOR NURSE EDUCATION 2-4 CNCRNT ANES PROC, QX - ANNEALING FURNACE OPERATOR SVC W/ MD MED DIRECTION
--- NOTE | 2024-09-22 13:25 | P.ANES_ITS ---
Anesthesia Charges Start Date/Time Anesthesia Start Date: 09/22/24 Anesthesia Start Time: 12:50 Stop Date/Time Anesthesia Stop Date: 09/22/24 Anesthesia Stop Time: 13:23 Coding CPT Codes CPT Codes: ANES LWR INTST SCR COLSC - 26480 ([id number]) QK - PHOTOGRAPHIC RESTORER 2-4 CNCRNT ANES PROC, QX - DEVELOPING MACHINE TENDER SVC W/ MED DIRECTION, P3 - PATIENT W/SEVERE SYS DISEASE
--- NOTE | 2024-09-22 13:25 | W.ANESCHARGE ---
Anesthesia Charges Start Date/Time Anesthesia Start Date: 09/22/24 Anesthesia Start Time: 12:50 Stop Date/Time Anesthesia Stop Date: 09/22/24 Anesthesia Stop Time: 13:23 Coding CPT Codes CPT Codes: ANES LWR INTST SCR COLSC - 36883 ([id number]) QK - SETTER UP 2-4 CNCRNT ANES PROC, QX - LEGAL OFFICER SVC W/ MED DIRECTION, P3 - PATIENT W/SEVERE SYS DISEASE
== END 2024-09-22 11:29 | disposition home or self-care (01) ==
LOC: OP CLINIC 11:29
PROVIDERS: PCP Family Medicine; Visit Provider Internal Medicine Gastroenterology
DX: Z12.11 Encounter for screening for malignant neoplasm of colon (principal); Z86.0100 Personal history of colon polyps, unspecified; D12.0 Benign neoplasm of cecum; D12.3 Benign neoplasm of transverse colon
CPT/HCPCS: 00812; 45380; 45385; J2704